=== PATIENT | male | born 1960 | race Caucasian/White ===

== ENCOUNTER 2019-08-02 15:28 | Inpatient (IN) | payer OTHER ==
[~2019-08-02] VITALS: Ht 182.9 cm; Wt 109.8 kg
[2019-08-02 15:37] VITALS: Ht 182.9 cm; Wt 109.8 kg
--- NOTE | 2019-08-02 15:41 | NUR ---
PT PRESENTS TO ED [facility] FROM [facility] S/P ATTEMPTING TO SUFFOCATE HIMSELF WITH A PILLOW AT FACILITY. PER EMS PT WAS FOUND BY STAFF ATTEMPTING TO SUFFOCATE HIMSELF. EMS STATE AT THE FACILITY PT WAS SAYING HE IS BED RIDDEN AND DOES NOT WANT TO LIVE ANYMORE. PT STS HE IS FEELING DEPRESSED ABOUT NOT BEING ABLE TO TAKE CARE OF HIMSELF AND STS "NO ONE AT THAT PLACE PAYS ATTENTION TO ME". WHEN PT ARRIVED TO ED AND ASKED IF HE CURRENTLY HAS SI, PT STATED "NO I DON'T WANT TO HURT MYSELF, NOBODY PAYS ATTENTION TO ME AT THAT PLACE". PT ARRIVED TO ED CALM, COOPERATIVE, AAOX4, RESP E/U, ON FULL CM, NO ACUTE DISTRESS NOTED AT THIS TIME. PT PLACED IN FRONT OF NURSES STATION FOR SAFETY.
--- NOTE | 2019-08-02 15:43 | NUR ---
PT BROUGHT IN FROM FACILITY IN [place]OWN WITH NO BELONGINGS EXCEPT FOR BLANKET. BLANKET PLACED IN RADIO RM.
--- NOTE | 2019-08-02 16:05 | NUR ---
LAB AT BEDSIDE.
--- NOTE | 2019-08-02 16:17 | NUR ---
XRAY AT BEDSIDE.
[2019-08-02 16:44] LABS: CALCIUM 9.2 mg/dL (8.5-10.1); CARBON DIOXIDE 25.6 mmol/L (21-32); CHLORIDE SERUM 107 mmol/L (98-107); GFR1 > 60 mL/min; GLUCOSE SERUM 124 mg/dL (74-106); POTASSIUM SERUM 4.3 mmol/L (3.5-5.1); SODIUM SERUM 144 mmol/L (136-145)
--- NOTE | 2019-08-02 16:48 | NUR ---
CALLED TO PT RM, PT REQUESTING SOMETHING TO HELP HIM SLEEP OR CALM HIM DOWN. MADE AWARE.
[2019-08-02 16:49] LABS: ALKALINE PHOSPHATASE 101 U/L (46-116); ALT/SGPT 44 U/L (16-63); AST/SGOT 22 U/L (15-37); BILIRUBIN TOTAL 0.44 mg/dL (0.20-1.00); TOTAL PROTEIN, SERUM 7.5 g/dL (6.4-8.2)
[2019-08-02 16:52] LABS: BASOPHIL % 0.4 % (0-2); PLATELET COUNT 261 x10^3mcL (130-400); RED CELL DISTRIBUTION WIDTH 13.6 % (11.5-14.5)
--- NOTE | 2019-08-02 17:38 | NUR ---
PT UNABLE TO USE URINAL TO GIVE URINE SAMPLE. PT STRAIGHT CATHED TO OBTAIN URINE SAMPLE. PT TOLERATED PROCEDURE WELL.
[2019-08-02 17:42] LABS: microscopic required? NO
[2019-08-02 17:56] LABS: UA SPECIFIC GRAVITY 1.015 (1.005-1.035); urine erythrocyte NEGATIVE (NEGATIVE)
[2019-08-02 18:15] LABS: AMPHETAMINE QUAL UR NONE DETECTED (See below)
--- NOTE | 2019-08-02 19:21 | NUR ---
REPORT GIVEN TO ZAHRA SINGH TO ASSUME CARE OF PT. ALL QUESTIONS ADDRESSED AND ANSWERED.
--- NOTE | 2019-08-02 19:24 | NUR ---
ASSUMED CARE FROM MAYDA SWEENEY. PT RESTING IN BED COMFORTABLY. A/O X4. RESP EVEN /UNLABORED. ON 1LPM VIA N/C. NO ACUTE DISTRESS NOTED. CALL LIGHT IN REACH. ALL NEEDS MET AT THIS TIME. PT KEP IN LINE OF SIGHT AT ALL TIMES.
--- NOTE | 2019-08-02 20:40 | NUR ---
PROVIDED PT SANDWICH AND MILK. PT EATING AT BEDSIDE.
--- NOTE | 2019-08-02 20:56 | NUR ---
PT LAYING IN BED. FINISHED EATING SANDWICH AMD MILK. PT KEPT IN LINE OF SIGHT AT ALL TIMES.
--- NOTE | 2019-08-02 21:37 | NUR ---
PT C/O ISREAL NOVOA MD MADE AWARE AND TYLENOL ORDERED AND GIVEN.
--- NOTE | 2019-08-03 00:44 | NUR ---
PT SLEEPING. PT IN LINE OF SIGHT AT ALL TIMES WITH FREQUENT VISUAL CHECKS BY RN.
--- NOTE | 2019-08-03 01:13 | NUR ---
PT SLEEPING IN BED. NO ACUTE DISTRESS NOTED. PT KEPT IN LINE OF SIGHT AT ALL TIMES.
--- NOTE | 2019-08-03 01:28 | NUR ---
MD AWARE PT REMOVED IV. NO IV ACCESS AT THIS TIME AND MD AWARE.
--- NOTE | 2019-08-03 01:29 | NUR ---
REPORT GIVEN TO ALBIN SWEENEY.
--- NOTE | 2019-08-03 02:35 | NUR ---
PT LAYING IN GURNEY, SLEEPING, RESP E/U, GOOD CHEST RISE AND FALL NOTED, NAD NOTED. REMAINS IN DIRECT SIGHT OF NURSES'S STATION.
--- NOTE | 2019-08-03 03:32 | NUR ---
PT IS SLEEPING IN GURNEY, GOOD CHEST RISE AND FALL NOTED, MOVING ALL EXTREMITIES APPROPRIATELY, RESP E/U, NAD NOTED. REMAINS IN DIRECT SIGHT OF NURSES' STATION.
--- NOTE | 2019-08-03 04:21 | NUR ---
PT SEEN ATTEMPTING TO GET OUT OF GURDETROIT. ASSISTED BACK INTO BED. PT REPORTS HE WAS TRYING TO USE THE RESTROOM. PT REMINDED OF HIS DIAPER, TOLD HE WOULD BE CHANGED ONCE DIAPER WAS SOILED, OFFERED URINAL, PT REFUSED URINAL. ASKED IF PT NEEDED ASSISTANCE. PT DENIED. PT ASSISTED BACK INTO [facility], BY MYSELF, EMT KIT, RN RENETTA, AND RN MAGNUS. PT IS AWAKE, ALERT, RESP E/U, CALM AND COOPERATIVE, NAD NOTED. REMAINS IN DIRECT SIGHT OF NURSES'S STATION.
--- NOTE | 2019-08-03 05:27 | NUR ---
PT LAYING IN GURNEY, RESTING, CALM AND COOPERATIVE, RESP E/U, NAD NOTED.
--- NOTE | 2019-08-03 05:47 | NUR ---
PT REPOSITIONED IN [facility] FOR COMFORT.
--- NOTE | 2019-08-03 06:26 | NUR ---
PT'S DIAPER CHECKED, NO VISIBLE URINE OR STOOL NOTED TO DIAPER. PT REPORTS HE WAS UNABLE TO URINATE AT THIS TIME. PT IS AWAKE, ALERT, LAYING IN GURNEY, CALM AND COOPERATIVE, REP E/U, NAD NOTED. REMAINS IN DIRECT SIGHT OF NURSES'S STATION.
--- NOTE | 2019-08-03 06:45 | NUR ---
PT SPO2 NOTED TO BE LOW DURING SLEEP WITH SNORING. PT PLACED ON 2L VIA NC, SP02 97%.
--- NOTE | 2019-08-03 07:14 | NUR ---
REPORT GIVEN TO ZAHRA BANERJEE TO ASSUME CARE FOR PT.
--- NOTE | 2019-08-03 07:34 | NUR ---
PT'S PHONE [phone]. IN CASE TO CALL. PT'S UPDATED PT'S STATUS. WANTS PT GO TO OTHER FACILITY [facility] THAN WHERE HE COME FROM IF PT NOT GOING TO [facility] FACILITY.
[2019-08-03] MEDS ORDERED: ACETAMINOP160 MG/52 PO (07:44)
[2019-08-03] MEDS ORDERED: ATORVASTATIN CA20 M1 PO (07:45)
[2019-08-03] MEDS ORDERED: BENAZEPRIL HYDR40 M1 PO (07:46)
[2019-08-03] MEDS ORDERED: COLACE100 MG PO (07:46)
[2019-08-03] MEDS ORDERED: DULCOLAX STOOL100 M1 PR (07:48)
[2019-08-03] MEDS ORDERED: KEPPRA500 MG PO (07:49)
[2019-08-03] MEDS ORDERED: MELATONIN3 M4 PO (07:50)
[2019-08-03] MEDS ORDERED: PAROXETINE20 M1 PO (07:51)
[2019-08-03] MEDS ORDERED: MP PO (07:51)
[2019-08-03] MEDS ORDERED: SENNA8.6 M2 PO (07:52)
--- NOTE | 2019-08-03 07:52 | NUR ---
PER REQCHRISSY. BREAKFAST WAS ORDERED. SAID PT NOT EATING FOR 24 HURS. AND KNEW PT CAN SWALLOW.
--- NOTE | 2019-08-03 12:50 | NUR ---
LUNCH OFFERED TO PT. CAME IN AND FED PT BEDSIDE.
--- NOTE | 2019-08-03 14:37 | NUR ---
pts packet has been faxed to [facility], [facility] and rica rodriguez for review [facility] will call with any new updates
--- NOTE | 2019-08-03 15:28 | NUR ---
PT WAS ADMITED TO [facility]. REPORT WAS CALLED AND GIVEN TO YVROSE SWEENEY.
[2019-08-03 16:12] VITALS: BP 156/100
--- NOTE | 2019-08-03 16:29 | NUR ---
RECEIVED PT FROM ER, PT ADMIT FOR SUICIDAL, PT IS A/O X3, NAME, PLACE, REASON. BUT NO TIME, ABLE TO ANSWER ALL THE QUESTIONS. LEFT FACIAL DROOP NOTED DUE TO HX CVA, PT STATE HAS PROBLEM VISION AT LEFT EYE AND BURNS PAIUTE. ALSO STATE HE HAS DIFFICULITY SWALLOW. PT DENY ANY SUICIDAL IDEA AT THIS MOMENT, BUT STATE HE CONSTANTLY HAS HALLUCINATION. HE SAW GHOST AND CLOWN AROUND HIM, DENY ANY CHEST PAIN OR DISCOMFORT, BOWEL SOUND PRESENT ALL 4 QUADRANTS, NO DISTENTION, BUT PT C/O NO BM FOR 4 DAYS, PEDAL PULSE PRESENT BOTH FEET, NO EDEMA, IV AT RIGHT AC, NO LEAKING, NO INFILTRATION. ALL ADLS ASSIST, ALL NEED MET, CALL LIGHT IN REACH, WILL CONTINUE TO MONITOR.
--- NOTE | 2019-08-03 18:00 | NUR ---
INFLUENZA VACCINE GIVEN BY RN STUDENT. PATIENT DENIES PAIN AT THIS TIME. NO ACUTE DISTRESS NOTED AT THIS TIME. IV TO RAC, CDI &PATENT. ALL NEEDS MET AT THIS TIME. CALL LIGHT WITHIN REACH, BED IN LOW POSITION. SITTER AT BEDSIDE FOR SAFETY PRECAUTION.
[2019-08-03 18:06] VITALS: BP 156/100
--- NOTE | 2019-08-03 18:16 | NUR ---
Received report from outgoing shift. Will continue to monitor and seek placement
--- NOTE | 2019-08-03 18:43 | NUR ---
PATIENT WANTED CPAP, RT NOTIFIED AT THIS TIME.
--- NOTE | 2019-08-03 19:15 | NUR ---
REPORT RECEIVED FROM DAY SHIFT RN. PATIENT WAS SEEN RESTING IN BED WITH SITTER AT BEDSIDE. PATIENT ON CPAP FOR SLEEP APNEA. NO DISTRESS NOTED. LEFT SIDED WEAKNESS. SLURRED SPEECH NOTED W/ LEFT SIDED FACIAL DROOP. A/OX4. BREATHING EVEN AND UNLABORED ON ROOM AIR. NO SOB OR RESP DISTRESS NOTED. IV TO RAC, SALINE LOCK. PATENT AND INTACT. NO REDNESS OR SWELLING NOTED. DENIES SUICIDAL IDEATIONS AND HALLUCINATIONS AT THIS TIME. COMFORT AND SAFETY MEASURES IN PLACE. BED IS LOCKED AND IN THE LOWEST POSITION. SIDE RAILS UP X2. CALL LIGHT IS WITHIN REACH. WILL CONTINUE TO MONITOR.
--- NOTE | 2019-08-03 20:09 | NUR ---
Called the following facilities: [facility] s/w Loraine, packet fax for review [facility] s/w Yuridia no beds [facility] s/w Luis, no beds. They have patient in their ER [place] s/w Keith no beds, only 1 female bed [facility], [place] [facility] s/w Obie, fax packet for review
--- NOTE | 2019-08-03 20:21 | NUR ---
Called The following facilities: [facility]w Markel. Packet fax for review [facility] s/w Jamil. Packet fax for review
[2019-08-03 20:45] VITALS: BP 142/91
--- NOTE | 2019-08-03 21:00 | NUR ---
[facility] CALLED. THEY CANNOT ACCEPT THE PATIENT BECAUSE PATIENT IS NONAMBULATORY. CHARGE NURSE AWARE.
--- NOTE | 2019-08-03 21:32 | NUR ---
S/W patient's bedside hector Nugent, patient is not ambulatory. [facility] s/w Loraine, not able to medically accomodate patient due to "patient not being able to ambulate"
--- NOTE | 2019-08-03 21:33 | NUR ---
[facility] CALLED. THEY CANNOT ACCEPT THE PATIENT BECAUSE PATIENT REQUIRES CPAP. CHARGE NURSE AWARE.
--- NOTE | 2019-08-04 00:15 | NUR ---
RESTING IN BED WITH EYES CLOSED. ON CPAP. SITTER AT BEDSIDE. NO APPARENT DISTRESS NOTED. BREATHING EVEN AND UNLABORED. NO S/S OF PAIN NOTED. SAFETY MEASURES IN PLACE. CALL LIGHT IS WITHIN REACH. WILL CONTINUE TO MONITOR.
--- NOTE | 2019-08-04 00:16 | NUR ---
ASKED DR HIGH TO CHANGE DIET TO PUREE. PATIENT HAD PUREE DIET AT [facility].
--- NOTE | 2019-08-04 00:22 | NUR ---
Packet fax to [facility]. S/W Lauren
--- NOTE | 2019-08-04 03:00 | NUR ---
[facility] CALLED AND THEY CANNOT ACCEPT THE PATIENT DUE TO LEFT SIDED WEAKNESS. CHARGE NURSE AWARE.
--- NOTE | 2019-08-04 03:02 | NUR ---
[facility] s/w Yasmine, fax packet for possible review [facility] s/w Julian, not able to medically accommodate patient [facility] s/w Haily, not able to medically accommodate patient [facility] s/w Markel, is able to accommodate patient with c-pap but they have no beds at this time. States to call back in the am between 9-10 am
--- NOTE | 2019-08-04 04:46 | NUR ---
C/O 3/10 BLE PAIN. REQUESTING PAIN MEDS. NORCO GIVEN ORDERED. MED EDUCATION GIVEN. SITTER AT BEDSIDE. NO DISTRESS NOTED. BREATHING EVEN. WILL CONTINUE TO MONITOR.
[2019-08-04 05:13] VITALS: BP 135/83
--- NOTE | 2019-08-04 06:49 | NUR ---
RESTING IN LONG INTERVALS THROUGHOUT THE NIGHT. NO DISTRESS NOTED. BREATHING EVEN AND UNLABORED ON ROOM AIR. NO SOB NOTED. NO C/O PAIN. DENIES CHEST PAIN. SITTER AT BEDSIDE. DENIES SI AND HALLUCINATIONS. ALL NEEDS AND CONCERNS ADDRESSED. SAFETY MEASURES IN PLACE. CALL LIGHT IS WITHIN REACH. WILL ENDORSE CARE TO DAY SHIFT RN.
[2019-08-04 06:51] LABS: BASOPHIL % 0.7 % (0-2); PLATELET COUNT 252 x10^3mcL (130-400)
[2019-08-04 06:59] LABS: CALCIUM 8.9 mg/dL (8.5-10.1); CARBON DIOXIDE 28.2 mmol/L (21-32); CHLORIDE SERUM 105 mmol/L (98-107); GFR1 > 60 mL/min; GLUCOSE SERUM 154 mg/dL (74-106); MAGNESIUM 2.3 mg/dL (1.8-2.4); PHOSPHOROUS 4.1 mg/dL (2.5-4.9); POTASSIUM SERUM 3.6 mmol/L (3.5-5.1); SODIUM SERUM 141 mmol/L (136-145)
--- NOTE | 2019-08-04 07:15 | NUR ---
RECIEVED PT RESTING IN BED WITH NO C/O PAIN OR DISTRESS. A/O X3 WITH NO BACH OR DIZZINESS. LUNGS CTAB. LEFT SIDED WEAKNESS. SL IN RAC, CDI AND PATENT. PT DENIES ANY SUICIDAL IDEATIONS AT THIS TIME. SITTER AT BEDSIDE. SAFETY PRECAUTIONS IN PLACE, CALL LIGHT WITHIN REACH, WILL MONITOR.
--- NOTE | 2019-08-04 12:30 | NUR ---
PT STABLE WITH NO C/O PAIN OR DISTRESS. SAFETY PRECAUTIONS IN PLACE, CALL LIGHT WITHIN REACH, SITTER AT BEDSIDE, WILL CONT TO MONITOR.
--- NOTE | 2019-08-04 14:45 | NUR ---
Yuridia called from [place]. She says they are reviewing the chart for possible bed placement at this time. Will keep facility updated with progress.
--- NOTE | 2019-08-04 17:11 | NUR ---
PAGED DR PERALES REGARDING PT REQUEST MEDICATION FOR CONSTIPATION, WILL F/U.
[2019-08-04 17:30] VITALS: BP 156/93
--- NOTE | 2019-08-04 19:01 | NUR ---
PT RESTING IN BED WITH NO C/O PAIN OR DISTRESS. A/O X3 WITH NO BACH OR DIZZINESS. LUNGS CTAB. LEFT SIDED WEAKNESS. SL IN RAC, CDI AND PATENT. PT DENIES ANY SUICIDAL IDEATIONS AT THIS TIME. SITTER AT BEDSIDE. SAFETY PRECAUTIONS IN PLACE, CALL LIGHT WITHIN REACH, WILL ENDORSE TO NIGHT NURSE.
--- NOTE | 2019-08-04 19:15 | NUR ---
REPORT RECEIVED FROM DAY SHIFT RN. PATIENT WAS SEEN RESTING IN BED WITH SITTER AT BEDSIDE. PATIENT VOICING THOUGHOUT OF HURTING HIMSELF. REPORTS HE FEELS SOMEONE IN THE BED WITH HIM. C/O ANXIETY. PATIENT STATES HE NEED TO TALK TO THE PSYCHIATRIST NOW. INFORMED PATIENT THAT PSYCHIATRIST WILL PROBABLY BE IN TOMORROW. REORIENTED AND CALMED PATIENT DOWN. BREATHING EVEN AND UNLABORED ON 2L NC. NO DISTRESS NOTED. DENIES PAIN. DENIES CHEST PAIN/PRESSURE. IV TO THE RAC. SALINE LOCK. PATENT AND INTACT. COMFORT AND SAFETY MEASURES IN PLACE. BED IS LOCKED AND IN THE LOWEST POSITION. SIDE RAILS UP X2. CALL LIGHT IS WITHIN REACH. WILL CONTINUE TO MONITOR.
[2019-08-04 20:01] VITALS: BP 134/75
--- NOTE | 2019-08-04 20:20 | NUR ---
NOTIFIED DR HIGH ABOUT PATIENT C/O ANXIETY AND HAVING THOUGHTS OF HURTING HIMSELF AGAIN. IS ALSO AWAR THAT PEDRO HAS NOT SEEN THE PATIENT YET.
--- NOTE | 2019-08-04 21:23 | NUR ---
PATIENT REPORTS HE DOES NOT FEEL ANXIOUS ANYMORE. WILL NOT ADMINISTER ATIVAN.
--- NOTE | 2019-08-04 21:35 | NUR ---
REPOSITION PATIENT IN BED WITH JUAN, MANUFACTURING BUSINESS ANALYST. RT PLACE PATIENT ON CPAP.
--- NOTE | 2019-08-05 00:49 | NUR ---
RESTING IN BED W/ CPAP ON. NO APPARENT SIGNS OF DISTRESS NOTED. BREATHING EVEN AND UNLABORED. NO S/S OF PAIN NOTED. SITTER AT BEDSIDE. SAFETY MEASURES IN PLACE. CALL LIGHT IS WITHIN REACH. WILL CONTINUE TO MONITOR.
--- NOTE | 2019-08-05 02:29 | NUR ---
RT TOOK PATIENT ON CPAP PER PATIENT'S REQUEST. PATIENT REQUESTING PAIN MEDS. C/O 08/23 KNEE PAIN. PRN NORCO GIVEN PER ORDER. SITTER AT BEDSIDE. NO DISTRESS NOTED. WILL CONTINUE TO MONITOR.
[2019-08-05 06:09] VITALS: BP 125/77
--- NOTE | 2019-08-05 06:52 | NUR ---
RESTED IN LONG INTERVALS. NO ACUTE CHANGES NOTED. SITTER AT BEDSIDE. NO DISTRESS NOTED. BREATHING EVEN AND UNLABORED ON ROOM AIR. NO SOB. C/O PAIN X1. DENIES CHEST PAIN. IVF INFUSING WELL. ALL NEEDS AND CONCERNS ADDRESSED. SAFETY MEASURES IN PLACE. CALL LIGHT IS WITHIN REACH. WILL ENDORSE CARE TO DAY SHIFT RN.
[2019-08-05 07:09] LABS: BASOPHIL % 0.9 % (0-2); PLATELET COUNT 241 x10^3mcL (130-400); RED CELL DISTRIBUTION WIDTH 13.9 % (11.5-14.5)
--- NOTE | 2019-08-05 07:11 | NUR ---
Received report from PM shift. Will continue to locate placement for Pt.
--- NOTE | 2019-08-05 07:30 | NUR ---
PT ENDORSE TO ME THIS MORNING, REBLANQUITA ON 5150 HOLD, 1:1 AT BEDSIDE. DENIES ANY S.I. AT THIS TIME. PT STATING "I FEEL BETTER TODAY". BREATHING EVEN AND UNLABORED ON RA, NO ACUTE RESP DISTRESS OR SOB NOTED. AA/O X4 / L FACIAL DROOP NOTED WITH SLURRED SPEECH DUE TO CVA HX. BOWEL SOUNDS ACTIVE IN ALL FOUR QUADS. INCONT, GEN WEAKNESS / L SIDED WEAKNESS/ PT EVAL THIS AM. IV TO THE RAC INTACT AND PATENT/ HEPLOCKED/ CALL LIGHT IN REACH. BED IN LOW POSITION. WILL CONTINUE TO MONITOR.
[2019-08-05 07:35] LABS: CALCIUM 9.3 mg/dL (8.5-10.1); CHLORIDE SERUM 105 mmol/L (98-107); GFR1 > 60 mL/min; GLUCOSE SERUM 91 mg/dL (74-106); MAGNESIUM 2.4 mg/dL (1.8-2.4); PHOSPHOROUS 4.3 mg/dL (2.5-4.9); SODIUM SERUM 141 mmol/L (136-145)
--- NOTE | 2019-08-05 09:30 | NUR ---
Packet refaxed to the following: [facility]
[2019-08-05 09:53] VITALS: BP 110/62
--- NOTE | 2019-08-05 11:43 | NUR ---
PT has been declined by [facility] based on medical criteria
--- NOTE | 2019-08-05 11:44 | NUR ---
No beds open at [facility]
--- NOTE | 2019-08-05 13:20 | NUR ---
Bedside swallow evaluation completed. Recommending Mechanical soft diet and nectar Thick liquids due to intermittent cough on thin liquids. Informed Briseida Martinez Nurse.
--- NOTE | 2019-08-05 14:30 | NUR ---
DR. VASQUEZ AT BEDSIDE/ PT IS NOW 5150 CLEARED, ZERO 1:1 AT BEDSIDE. PT IS SITTING UP IN BED/ DENIES ANY CP OR PRESSURE/ BREATHING EVEN AND UNLABORED ON RA, NO ACUTE RESP DISTRESS OR SOB NOTED. TOLERATED 100% OF LUNCH. WILL CONITNUE TO MONITOR.
--- NOTE | 2019-08-05 16:08 | NUR ---
PT C/O GEN BODY PAIN 03/23, MEDICATED PER EMAR. WILL CONTINUE TO MONITIOR.
--- NOTE | 2019-08-05 18:12 | NUR ---
PT LAYING IN BED RESTING, BREATHING EVEN AND UNLABORED ON RA, NO ACUTE RESP DISTRESS OR SOB NOTED. IV TO THE RAC INTACT AND PATENT/ HEPLOCKED. PT REFUSE TO EAT HIS DINNER AND WANTED TO A SLEEPING PILL, EDUCATED PT THAT HE CAN REC HIS SLEEPING PILL AFTER 8 PM, PT AGREED. CALL LIGHT IN REACH. BED IN LOW POSITION. CALL LIGHT IN REACH. BED ALARM ON BY NURSING STATION. WILL ENDORSE TO INCOMING RN.
--- NOTE | 2019-08-05 19:40 | NUR ---
AWAKE AND ALERT, ORIENTED TO NAME, PLACE, TIME AND SITUATION. SLURRED SPEECH, LEFT FACIAL DROOP. DECREASED SENSATION TO LEFT SIDE. FULL, PASSIVE ROM LEFT UPPER ARM. ACTIVE, LIMITED MOVEMENT TO LEFT LEG. ON CPAP, SETTINGS OF CPAP5, FIO2 28%. BREATHING EVEN AND UNLABORED, RR 17/MIN. STATED THROAT WAS A LITTLE DRY. ASSISTED TO DRINK SOME WATER. INSTRUCTED TO DRINK WATER WITH SMALL SIPS OF WATER. CALL LIGHT WITHIN EASY REACH.
[2019-08-05 20:56] VITALS: BP 121/71
--- NOTE | 2019-08-05 23:20 | NUR ---
WET WITH URINE. HYGIENE NEEDS ATTENDED TO. NO REDNESS NOTED TO BUTTOCKS. BED BATH ADMINISTERED. GOWN AND LINEN CHANGED. PT STATED HE WANTS THE CPAP OFF. PLACED ON 2LPM OF O2 VIA NC. O2 SAT 97%. INFORMED RESP THERAPIST ALEXEI. HOB KEPT ELEVATED 30 DEG. SIDE RAILS KEPT ELEVATED.
--- NOTE | 2019-08-06 01:55 | NUR ---
EYES CLOSED, BREATHING EVEN AND UNLABORED ON 2LPM OF O2 VIA NC. HOB KEPT ELEVATED 30 DEG. CALL LIGHT WITHIN EASY REACH OF RIGHT HAND. BED ALARM ON.
[2019-08-06 05:40] VITALS: BP 138/80
--- NOTE | 2019-08-06 06:19 | NUR ---
COMPLETE BED BATH ADMINISTERED. ASSISTED BY BRITT QUAN. NO REDNESS NOTED TO BUTTOCKS AND SACROCOCCYGEAL AREA. MOISTURE BARRIER CREAM APPLIED. GOWN AND LINENS CHANGED. STATED HE WAS HUNGRY. ASSISTED TO FEED, ATE 1 CUP OF CHOCOLATE PUDDING. ATE WITH GOOD APPETITE. NO COUGHING OR SWALLOW DELAY NOTED. ON HIGH FOWLERS. BREATHING EVEN AND UNLABORED ON 2LPM OF O2 VIA NC. ROM EXERCISES DONE FOR ALL EXTREMITIES. PASSIVE FULL ROM TO LEFT ARM, FULL ROM TO LEFT LEG, LIMITED MOVEMENT. CALL LIGHT WITHIN EASY REACH. BED ALARM ON. BED IN LOWEST POSITION. SIDE RAILS KEPT RAISED.
--- NOTE | 2019-08-06 07:05 | NUR ---
EYES CLOSED, BREATHING EVEN AND UNLABORED ON 2LPM OF O2 VIA NC. HOB ELEVATED 30 DEG. CALL LIGHT WITHIN EASY REACH. BED ALARM ON. ENDORSED TO NURSE LINNEA
--- NOTE | 2019-08-06 07:10 | NUR ---
REPORT TAKEN FROM ELECTRONICS RESEARCH ENGINEER NURSE AT THE BEDSIDE, PATIENT RESTING AT THIS TIME WITH EYES CLOSED, CHEST RISE AND FALL OBSERVED, BREATHING EQUAL AND UNLABORED, WILL CONTINUE TO MONITOR.
[2019-08-06 07:57] VITALS: BP 139/61
[2019-08-06 07:59] VITALS: BP 135/75
[2019-08-06 12:08] VITALS: BP 143/87
[2019-08-06 16:10] VITALS: BP 139/74
--- NOTE | 2019-08-06 16:17 | NUR ---
PATIENT IS REPORTING ANXIETY AND REQUESTING TO HAVE SLEEPING PILL AND CPAP SO HE CAN GET SOME REST. I WILL GIVE PRN MEDICATION AND CALL RT FOR CPAP.
--- NOTE | 2019-08-06 19:15 | NUR ---
RECEIVED REPORT FROM DAY SHIFT NURSE, LINNEA SWEENEY. PT IS AAOX3. FORGETFUL AT TIMES. L SIDED FACIAL DROOP. SLURRED SPEECH FROM CVA 3 WEEKS AGO. [place] EYE HAS POOR VISION. DENIES BACH AT THIS TIME. M/S PT. DENIES CP. PULSES ARE PALPABLE. NO EDEMA NOTED. BREATHING IS EVEN AND UNLABORED ON RA. LUNG SOUNDS CTA. NO RESP DISTRESS NOTED. ABD IS SOFT, ROUND, AND NONDISTENDED. DENIES N/V/D. INCONTINENT. WILL PROVIDE RITA-CARE PRN. L SIDED WEAKNESS. SKIN INTACT. DENIES ANY PAIN AT THIS TIME. IV TO RAC DRY AND INTACT. NO ERYTHEMA NOTED. BED IN LOWEST POSITION. CALL LIGHT WITHIN REACH. BED ALARM ON. WILL CONTINUE TO MONITOR.
[2019-08-06 20:39] VITALS: BP 116/61
--- NOTE | 2019-08-06 21:44 | NUR ---
ROUTINE MEDICATIONS WERE CRUSHED AND GIVEN WITH VANILLA PUDDING, TOLERATED WELL. BREATHING IS EVEN AND UNLABORED ON RA. NO SIGNS OF RESP DISTRESS. PT IS REQUESTING FOR KEIRYIEN. WILL MAKE MD AWARE. PT C/O 11/21 BACK PAIN. MEDICATED WITH TYLENOL PRN. BED IN LOWEST POSITION. CALL LIGHT WITHIN REACH. BED ALARM ON. WILL CONTINUE TO MONITOR.
--- NOTE | 2019-08-06 22:14 | NUR ---
DR LOPEZ AWARE OF PT WANTING AMBIEN. AWAITING ORDERS.
--- NOTE | 2019-08-06 23:02 | NUR ---
AMBIEN ADMINISTERED. BREATHING IS EVEN AND UNLABORED ON RA. NO SIGNS OF RESP DISTRESS. BED IN LOWEST POSITION. CALL LIGHT WITHIN REACH. BED ALARM ON. WILL CONTINUE TO MONITOR.
[2019-08-07] VITALS (7 sets, daily range): BP systolic 124–146; BP diastolic 72–99
--- NOTE | 2019-08-07 01:13 | NUR ---
PT IS RESTING COMFORTABLY WITH EYES CLOSED, BUT EASILY AROUSABLE WHEN SPOKEN TO. BREATHING IS EVEN AND UNLABORED ON CPAP. NO SIGNS OF RESP DISTRESS. BED IN LOWEST POSITION. CALL LIGHT WITHIN REACH. BED ALARM ON. WILL CONTINUE TO MONITOR.
--- NOTE | 2019-08-07 03:21 | NUR ---
PT IS RESTING COMFORTABLY, BUT EASILY AROUSABLE WHEN SPOKEN TO. BREATHING IS EVEN AND UNLABORED ON CPAP. NO SIGNS OF RESP. DISTRESS. BED IN LOWEST POSITION. CALL LIGHT WITHIN REACH. BED ALARM ON. WILL CONTINUE TO MONITOR.
--- NOTE | 2019-08-07 06:43 | NUR ---
PT SLEPT IN SHORT INTERVALS THROUGHOUT THE NIGHT AND COMPLIED WITH NURSING CARE WITH NO ACUTE EVENTS OCCURRING DURING THE SHIFT. COMFORT AND SAFETY MEASURES MAINTAINED. ALL NEEDS ASSESSED AND ATTENDED TO. ESTEBAN CONTINUE TO MONITOR AND ENDORSE CARE TO DAY SHIFT NURSE.
--- NOTE | 2019-08-07 07:11 | NUR ---
REPORT TAKEN FROM CREDIT ADMINISTRATION SPECIALIST NURSE AT THE BEDSIDE, PATIENT RESTING AT THIS TIME WITH EYES CLOSED, CHEST RISE AND FALL OBSERVED, NO ACUTE DISTRESS OBSERVED OR REPORTED, PATIENT HAD SEVERAL EPISODES OF CONFUSION AND MILD AGGITATION LAST NIGHT PER REPORT, WILL CONTINUE TO MONITOR.
--- NOTE | 2019-08-07 18:09 | NUR ---
PATIENT IS CALM AT THIS TIME AND RESTING ON CPAP. WILL CONTINUE TO MONITOR
--- NOTE | 2019-08-07 19:05 | NUR ---
CARE ASSUMED FROM OUTGOING RN. PT RESTING IN BED WITH EYES CLOSED. EVEN AND UNLABORED RESPIRATIONS ON CPAP. MEDSURG PT. IVL INTACT. BED IN LOWEST POSITION. SIDE RAILS UPX2. CALL LIGHT WITHIN REACH. WILL CONTINUE TO MONITOR.
--- NOTE | 2019-08-07 19:21 | NUR ---
REPORT GIVEN TO LIFESTYLE CONSULTANT NURSE, CARE ENDORSED
--- NOTE | 2019-08-08 00:28 | NUR ---
PT RESTING COMFORTABLY IN BED. EVEN AND UNLABORED RESPIRATIONS ON CPAP. IVL INTACT. REPOSITIONED PT TO RIGHT SIDE. PT TOLERATED WELL. BED IN LOWEST POSITION. SIDE RAILS UPX2. CALL LIGHT WITHIN REACH. WILL CONTINUE TO MONITOR.
--- NOTE | 2019-08-08 02:00 | NUR ---
CLEANED PT WITH ASSISTANCE FROM NURSING AID. GOWN CHANGED. REPOSITIONED PT TO LEFT SIDE. PT TOLERATED WELL. EVEN AND UNLABORED RESPIRATIONS ON CPAP. BED IN LOWEST POSITION. SIDE RAILS UPX2. CALL LIGHT WITHIN REACH. WILL CONTINUE TO MONITOR.
[2019-08-08 05:35] VITALS: BP 116/67
--- NOTE | 2019-08-08 06:30 | NUR ---
PT SLEPT IN INTERVALS THROUGHOUT THE SHIFT. ALL NEEDS TENDED TO AND MET. EVEN AND UNLABORED RESPIRATIONS ON CPAP/RA. C/O NECK PAIN MEDICATED PER EMAR. LEFT SIDED WEAKNESS NOTED. CLEANED PT DUE TO INCONTINENT, REPOSITIONED PT THROUGHOUT THE SHIFT. BED IN LOWEST POSITION. SIDE RAILS UPX2. CALL LIGHT WITHIN REACH. WILL ENDORSE TO ONCOMING SHIFT.
--- NOTE | 2019-08-08 08:42 | NUR ---
AAO TIMES 4. MED SURG PATIENT. LEFT SIDED FACIAL DROOP. LEFT ARM PARESIS, LLE WITH MINIMAL TO MODERATE MOVEMENT. LUNGS CTA. NO SOB. O2 SAT ON RA 99%. BS'S ACTIVE TIMES 4. PERIPHERAL PULSES PALPABE. NO EDEMA. IV SITE RAC PATENT, CDI.
[2019-08-08 09:21] VITALS: BP 138/75
[2019-08-08 12:37] VITALS: BP 126/79
--- NOTE | 2019-08-08 15:00 | NUR ---
REMOVED DRESSING TO [facility]. PATIENT HAS 2 WOUNDS. TOOK PHOTO IN PREPARATION FOR DISCHARGE. THE WOUND #1 CLOSER TO THE FOOT IS 1.5 X 0.6 CM PINK MOIST WOUND BED, SLIGHT SEROUS SANGUINOUS DRAINAGE, TISSUE SURROUNDING IS WHITE. WOUND # 2 IS 1.3 X 1.3, DRY, BROWN, AND NO DRAINAGE. IRRIGATED BOTH WOUNDS WITH NS, APPLIED THERAHONEY TO BOTH, APPLIED NON STICK DRESSING, 4" GAUZE AND GAUZE WRAP TO BOTH.
--- NOTE | 2019-08-08 15:09 | NUR ---
PHYSICAL THERAPY DAILY NOTES CO-SIGN All documentation done by the Word Processor Operator for 08/08/19 has been reviewed. I agree with the documentation. Reviewed/Co-Signed by: Keke Bird PT Documentation Done by:SANCHEZ MCKEE PTA
[2019-08-08 16:34] VITALS: BP 138/86
--- NOTE | 2019-08-08 18:21 | NUR ---
AAO TIMES 3. FORGETFUL AT TIMES. MED SURG PATIENT. SL TO [facility], [facility]. COOPERATIVE. HE WILL BE TRANSFERRED TO [facility], I CALLED HIS , SO SHE IS NOW A[facility]
--- NOTE | 2019-08-08 18:32 | NUR ---
CALLED TO [facility] AND SPOKE W/ FARZAD REGARDING THE TRANSPORT AND SHE STATED TO CALL [facility] FOR TRANSPORT TO [facility] AND AND TO [facility].
--- NOTE | 2019-08-08 18:34 | NUR ---
REPORT GIVEN MAI SIMMS AT [facility] AT [phone].
--- NOTE | 2019-08-08 18:40 | NUR ---
CALLED [facility] AND SPOKE W/ ABBEY AND JOSEPH MADE AND CINEMA OR THEATRE MANAGER BETWEEN [phone].
--- NOTE | 2019-08-08 18:42 | NUR ---
DC'D [facility], ANGIO INTACT. GAVE DISCHARGE INSTRUCTIONS. HE VERBALIZED "I UNDERSTAND" TO INSTRUCTIONS. I CALLED HIS , SHE IS AWARE OF HIS PENDING TRANSFER.
--- NOTE | 2019-08-08 19:45 | NUR ---
FOR DC NEXT DOOREDWIN,ALL PAPERWORKS DONE FROM DAY SHIFT.WAITING FOR TRANSPORT.
--- NOTE | 2019-08-08 19:49 | NUR ---
TRANSPORT HERE.ALL PAPERWORKS GIVEN.
== END 2019-08-08 19:57 | DRG 880 ==
LOC: ED 15:28 → MU 08-03 14:39
PROVIDERS: Emergency Medicine; ADMIT Family Medicine
DX: R45.851 Suicidal ideations (principal); I69.354 Hemiplegia and hemiparesis following cerebral infarction affecting left non-dominant side; F41.9 Anxiety disorder, unspecified; F32.9 Major depressive disorder, single episode, unspecified; E11.9 Type 2 diabetes mellitus without complications; I10 Essential (primary) hypertension; F12.10 Cannabis abuse, uncomplicated; Z68.27 Body mass index [BMI] 27.0-27.9, adult; Z87.891 Personal history of nicotine dependence; Z85.46 Personal history of malignant neoplasm of prostate; Z79.84 Long term (current) use of oral hypoglycemic drugs
CPT/HCPCS: 90658; 92610-GN; 97110-GP; 97116-GP; 97530-GP; G0378; G0480; J2060; Q0092